=== PATIENT | female | born 1940 | race Caucasian/White ===

== ENCOUNTER 2016-10-28 10:20 | Outpatient (CLI) | payer MEDICARE | END 2016-10-28 10:21 | disposition home or self-care (01) | LOC: NC 10:20 | PROVIDERS: ATTEND Family Medicine | DX: E11.9 Type 2 diabetes mellitus without complications (principal) ==

== ENCOUNTER 2016-11-11 13:04 | Outpatient (CLI) | payer MEDICARE | END 2016-11-11 13:05 | disposition home or self-care (01) | LOC: NC 13:04 | PROVIDERS: ATTEND Family Medicine | DX: E11.9 Type 2 diabetes mellitus without complications (principal); Z71.3 Dietary counseling and surveillance; Z68.32 Body mass index [BMI] 32.0-32.9, adult ==